=== PATIENT | female | born 1970 | race Caucasian/White ===

== ENCOUNTER 2020-03-12 08:04 | Emergency (ER) | payer BC ==
[2020-03-12 08:25] VITALS: BP 128/76; PULSE 67
--- NOTE | 2020-03-12 09:54 | EDM.PDOC ---
ED HPI GENERAL MEDICAL PROBLEM - General Chief Complaint: General Stated Complaint: BLEEDING FROM EAR / ON BLOOD THINNERS Time Seen by Provider: 03/12/20 08:40 - History of Present Illness INITIAL COMMENTS - FREE TEXT/NARRATIVE: A 49 years old female ,Known patient of factor V Leiden defi,DVT ,anxiety & depression , came this morning to the ED with c/o bleeding from left year .She reports that she noticed blood in her left ear canal & her hearing aid device shows blood clots on it. She is on warfarin 10 mg on Monday & Monday & 11 mg on rest of days of week. She reports that bleeding started 2 hours ago. Bleeding is not associated with pain ,ear discharge ,headache ,fever,or runny nose No h/o of ear trauma Onset: Today Onset Date: 03/12/20 Onset Time: 08:40 Duration: Hour(s): (2) - Related Data Allergies Allergy/AdvReac Type Severity Reaction Status Date / Time No Known Allergies Allergy Verified 03/13/16 21:50 Home Meds: Home Meds Fingolimod HCl [Gilenya] 0.5 mg PO DAILY 06/29/15 [History] Sertraline [Zoloft] 25 mg PO BEDTIME 06/29/15 [History] Warfarin Sodium [Jantoven] 10 mg PO BEDTIME 06/29/15 [History] Lisinopril 10 mg PO DAILY 02/02/18 [History] Past Medical History HEENT History: Reports: Impaired Vision Cardiovascular History: Reports: Hypertension, Other (See Below) Other Cardiovascular History: FACTOR 5 LEIDEN Genitourinary History: Reports: Renal Calculus 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 DVT Dermatologic History: Reports: Other (See Below) Other Dermatologic History: BRUISING FROM KNEE TO ANKLE, WARM TO TOUCH, EDEMETOUS - Infectious Disease History Infectious Disease History: Reports: Chicken Pox - Past Surgical History Female Surgical History: Reports: Section, Lithotripsy/ESWL Social & Family History - Family History Family Medical History: No Pertinent Family History - Tobacco Use Tobacco Use Status *Q: Never Tobacco User Second Hand Smoke Exposure: No - Caffeine Use Caffeine Use: Reports: Coffee - Recreational Drug Use Recreational Drug Use: No ED ROS GENERAL - Review of Systems Review Of Systems: See Below Constitutional: Reports: No Symptoms HEENT: Reports: Ear Discharge (Left ears shows fresh blood coming out from left ear canal ), Other Respiratory: Reports: No Symptoms Cardiovascular: Reports: No Symptoms Endocrine: Reports: No Symptoms GI/Abdominal: Reports: No Symptoms : Reports: No Symptoms Musculoskeletal: Reports: No Symptoms Skin: Reports: No Symptoms Neurological: Reports: No Symptoms Hematologic/Lymphatic: Reports: No Symptoms Immunologic: Reports: No Symptoms ED EXAM, GENERAL - Physical Exam Exam: See Below Exam Limited By: No Limitations General Appearance: Alert, No Apparent Distress Ears: Normal External Exam Ear Exam: Right Ear: TM normal (NOrmal ), Left Ear: Bleeding ([place] normal ,normal tympanic membrane ), Erythema (present on left ear auditory canal +fresh bright red blood oozing from left ear canal ) Nose: Normal Inspection Throat/Mouth: Normal Inspection Head: Atraumatic Neck: Normal Inspection Respiratory/Chest: No Respiratory Distress Cardiovascular: Normal Peripheral Pulses GI/Abdominal: Normal Bowel Sounds (Female) Exam: Normal External Exam, Normal Speculum Exam, Normal Bimanual Exam Neurological: Alert, Oriented Psychiatric: Normal Affect Course - Vital Signs Last Recorded V/S: Last Vital Signs Temp 97.1 F 03/12/20 08:17 Pulse 67 03/12/20 08:17 Resp 18 03/12/20 08:17 BP 128/76 03/12/20 08:17 Pulse Ox 100 03/12/20 08:17 - Orders/Labs/Meds Labs: Laboratory Tests 03/12/20 03/12/20 03/12/20 Range/Units 08:30 08:30 08:30 WBC 4.4 D (4.0-11.0) K/uL RBC 4.84 (3.80-5.80) M/uL Hgb 13.1 (11.5-16.5) g/dL Hct 40.3 (37.0-47.0) % MCV 83 (76-96) fL MCH 27.1 (27.0-32.0) pg MCHC 32.5 (31.0-35.0) g/dL RDW 14.9 (11.0-16.0) % Plt Count 231 D (150-500) K/uL MPV 9.4 (6.0-10.0) fL Neut % (Auto) 80.5 H (45.0-70.0) % Lymph % (Auto) 7.7 L (20.0-40.0) % [place] % (Auto) 10.5 H (3.0-10.0) % Eos % (Auto) 1.1 (1.0-5.0) % Baso % (Auto) 0.2 (0.0-0.5) % Neut # (Auto) 3.54 (2.00-7.50) K/uL Lymph # (Auto) 0.34 L (1.50-4.00) K/uL [place] # (Auto) 0.46 (0.20-0.80) K/uL Eos # (Auto) 0.05 (0.04-0.40) K/uL Baso # (Auto) 0.01 L (0.02-0.10) K/uL PT 32.5 H (9.0-11.5) sec INR 3.2 (1.0-3.5) APTT 37.2 H (24.4-33.2) SECONDS D-Dimer, Quantitative < 100 (0-400) ng/mL Sodium (136-145) mmol/L Potassium (3.5-5.1) mmol/L Chloride (98-107) mmol/L Carbon Dioxide (21.0-32.0) mmol/L Anion Gap (5.0-15.0) mmol/L BUN (8-26) mg/dL Creatinine (0.55-1.02) mg/dL Est Cr Clr Drug Dosing mL/min Estimated GFR (MDRD) (>60) MLS/MIN BUN/Creatinine Ratio (6-25) Glucose (74-100) mg/dL Calcium (8.5-10.1) mg/dL Total Bilirubin (0.0-1.0) mg/dL AST (15-37) U/L ALT (12-78) U/L Alkaline Phosphatase (46-116) U/L Total Protein (6.4-8.2) g/dL Albumin (3.4-5.0) g/dL Globulin (2.2-4.2) g/dL Albumin/Globulin Ratio (0.8-2.0) 01/28/21 Range/Units 08:30 WBC (4.0-11.0) K/uL RBC (3.80-5.80) M/uL Hgb (11.5-16.5) g/dL Hct (37.0-47.0) % MCV (76-96) fL MCH (27.0-32.0) pg MCHC (31.0-35.0) g/dL RDW (11.0-16.0) % Plt Count (150-500) K/uL MPV (6.0-10.0) fL Neut % (Auto) (45.0-70.0) % Lymph % (Auto) (20.0-40.0) % [place] % (Auto) (3.0-10.0) % Eos % (Auto) (1.0-5.0) % Baso % (Auto) (0.0-0.5) % Neut # (Auto) (2.00-7.50) K/uL Lymph # (Auto) (1.50-4.00) K/uL [place] # (Auto) (0.20-0.80) K/uL Eos # (Auto) (0.04-0.40) K/uL Baso # (Auto) (0.02-0.10) K/uL PT (9.0-11.5) sec INR (1.0-3.5) APTT (24.4-33.2) SECONDS D-Dimer, Quantitative (0-400) ng/mL Sodium 140 (136-145) mmol/L Potassium 4.0 (3.5-5.1) mmol/L Chloride 106 (98-107) mmol/L Carbon Dioxide 26.4 (21.0-32.0) mmol/L Anion Gap 11.6 (5.0-15.0) mmol/L BUN 12 (8-26) mg/dL Creatinine 1.19 H D (0.55-1.02) mg/dL Est Cr Clr Drug Dosing 65.32 mL/min Estimated GFR (MDRD) 49 L (>60) MLS/MIN BUN/Creatinine Ratio 10.1 (6-25) Glucose 117 H (74-100) mg/dL Calcium 8.0 L (8.5-10.1) mg/dL Total Bilirubin 0.3 D (0.0-1.0) mg/dL AST 22 (15-37) U/L ALT 47 (12-78) U/L Alkaline Phosphatase 65 (46-116) U/L Total Protein 7.1 (6.4-8.2) g/dL Albumin 3.7 (3.4-5.0) g/dL Globulin 3.4 (2.2-4.2) g/dL Albumin/Globulin Ratio 1.1 (0.8-2.0) - Re-Assessments/Exams Free Text/Narrative Re-Assessment/Exam: 03/12/20 10:09 Labs ordered - I reviewed labs myself - PT was 32.2 INR =3.2 APPT was 37.2 -discussed with her to speak with her PCP if she can hold warfarin for a day or two -The patient agreed left ear canal was cleaned with dry & wet swab . Left ear canal was packed with a gauze roll with triple antibiotic . She was advised to see the PCP tomorrow for removal of gauze roll. The patient was advised to come back if bleeding worse . Departure - Departure Time of Disposition: 09:35 Disposition: Home, Self-Care 01 Condition: Good Clinical Impression: Bleeding from left ear - Discharge Information *PRESCRIPTION DRUG MONITORING PROGRAM REVIEWED*: No *COPY OF PRESCRIPTION DRUG MONITORING REPORT IN PATIENT SIOMARA: No Instructions: Ear Drainage, [id number] Referrals: PCP,None [Primary Care Provider] - Forms: ED Department Discharge Additional Instructions: Discharge home. Avoid using ear plugs for a few days. Return to the clinic tomorrow to have packing removed from the right earElizabeth at 9am. If the packing falls out during the night and there is not bleeding, do not put packing back in. If the right ear canal is still bleeding, return to the hospital. Sepsis Event Note (ED) - Evaluation Sepsis Screening Result: No Definite Risk - Focused Exam Vital Signs: Vital Signs Temp Pulse Resp BP Pulse Ox 03/12/20 08:17 97.1 F 67 18 128/76 100 03/12/20 08:15 97.1 F 72 18 128/76 100 - Problem List & Annotations (1) Ear bleeding SNOMED Code(s): 356222759, 745551503 Code(s): H92.20 - OTORRHAGIA, UNSPECIFIED EAR Status: Acute Priority: Medium Qualifiers: Laterality: left Qualified Code(s): H92.22 - Otorrhagia, left ear (2) detention current use of anticoagulant SNOMED Code(s): 253098488 Code(s): Z79.01 - PRISON (CURRENT) USE OF ANTICOAGULANTS Status: Acute (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
== END 2020-03-12 09:25 | disposition home or self-care (01) ==
LOC: LB.ED 08:04
DX: H92.22 Otorrhagia, left ear (principal); I10 Essential (primary) hypertension; G35 Multiple sclerosis; Z79.01 Long term (current) use of anticoagulants; Z79.899 Other long term (current) drug therapy
CPT/HCPCS: 36415; 80053; 85025; 85379; 85610; 85730; 99283

== ENCOUNTER 2021-02-23 09:23 | Emergency (ER) | payer BC ==
[2021-02-23 11:03] VITALS: BP 152/82; PULSE 78
== END 2021-02-23 12:08 | disposition home or self-care (01) ==
LOC: LB.ED 09:23
DX: S86.012A Strain of left Achilles tendon, initial encounter (principal); I10 Essential (primary) hypertension; Z79.899 Other long term (current) drug therapy; Z79.01 Long term (current) use of anticoagulants; Z86.718 Personal history of other venous thrombosis and embolism; W18.30XA Fall on same level, unspecified, initial encounter; W86.8XXA Exposure to other electric current, initial encounter; Y93.01 Activity, walking, marching and hiking; Y92.000 Kitchen of unspecified non-institutional (private) residence as the place of occurrence of the external cause
CPT/HCPCS: 73610-LT; 99283

== ENCOUNTER 2023-05-28 10:01 | Emergency (ER) | payer BC ==
[2023-05-28 10:15] VITALS: PULSE 83
[2023-05-28 11:33] VITALS: BP 145/89
== END 2023-05-28 11:11 | disposition home or self-care (01) ==
LOC: LB.ED 10:01
DX: S00.83XA Contusion of other part of head, initial encounter (principal); I10 Essential (primary) hypertension; E66.9 Obesity, unspecified; Z68.41 Body mass index [BMI] 40.0-44.9, adult; Z79.899 Other long term (current) drug therapy; Z79.01 Long term (current) use of anticoagulants; W01.198A Fall on same level from slipping, tripping and stumbling with subsequent striking against other object, initial encounter
CPT/HCPCS: 70450; 70486; 99283

== ENCOUNTER 2024-02-23 21:08 | Inpatient (IN) | payer BC ==
[2024-02-23] MEDS: Ondansetron 4 MG/2 ML SDV IVPUSH PRN (22:34)
[2024-02-23 22:38] LABS: BASOPHILS ABSOLUTE AUTO 0.03 K/uL (0.02-0.10); BASOPHILS PERCENT AUTO 0.3 % (0.0-0.5); EOSINOPHILS ABSOLUTE AUTO 0.01 K/uL (0.04-0.40); EOSINOPHILS PERCENT AUTO 0.1 % (1.0-5.0); HEMOGLOBIN 13.1 g/dL (11.5-16.5); LYMPHOCYTES ABSOLUTE AUTO 1.01 K/uL (1.50-4.00); LYMPHOCYTES PERCENT AUTO 9.4 % (20.0-40.0); MEAN CORPUSCULAR HEMOGLOBIN 28.3 pg (27.0-32.0); MEAN CORPUSCULAR HGB CONC 33.6 g/dL (31.0-35.0); MEAN CORPUSCULAR VOLUME 84 fL (76-96); MEAN PLATELET VOLUME 9.5 fL (6.0-10.0); MONOCYTES ABSOLUTE AUTO 0.76 K/uL (0.20-0.80); MONOCYTES PERCENT AUTO 7.1 % (3.0-10.0); NEUTROPHILS ABSOLUTE AUTO 8.93 K/uL (2.00-7.50); NEUTROPHILS PERCENT AUTO 83.1 % (45.0-70.0); PLATELET COUNT,PLT 254 K/uL (150-500); RED BLOOD CELL COUNT 4.63 M/uL (3.80-5.80); WHITE BLOOD CELL COUNT,WBC 10.7 K/uL (4.0-11.0)
[2024-02-23] MEDS: HYDROmorphone 1 MG/ML Syringe IVPUSH PRN (22:40)
[2024-02-23] MEDS: HYDROmorphone 2 MG/ML Syringe ONE (22:55)
[2024-02-23 22:56] LABS: A/G RATIO 1.2 (0.8-2.0); ANION GAP 15.2 mmol/L (5.0-15.0); BILIRUBIN TOTAL 0.7 mg/dL (0.0-1.0); BUN/CREATININE RATIO 10.5 (6-25); CALCIUM 8.8 mg/dL (8.5-10.1); CARBON DIOXIDE,CO2 27.5 mmol/L (21.0-32.0); CREATININE 1.33 mg/dL (0.55-1.02); EST CRCL DRUG DOSING (CG) 54.11 mL/min; POTASSIUM,K 4.7 mmol/L (3.5-5.1); PROTEIN TOTAL,TP 7.4 g/dL (6.4-8.2)
[2024-02-23 22:59] LABS: INR 3.2 (1.0-3.5)
[2024-02-24] MEDS: Lisinopril 20 MG Tab PO SCH (00:51)
[2024-02-24] MEDS: Sertraline 100 MG Tab PO SCH (00:51)
[2024-02-24] MEDS: FLU (Fluarix Triv) TS24-25(6MOS UP)/PF 45 MCG/0.5 ML Syringe IM ONE (00:54)
[2024-02-24] MEDS: HYDROmorphone 1 MG/ML Syringe IVPUSH SCH (01:36)
[2024-02-24 07:10] LABS: BASOPHILS ABSOLUTE AUTO 0.02 K/uL (0.02-0.10); BASOPHILS PERCENT AUTO 0.2 % (0.0-0.5); EOSINOPHILS ABSOLUTE AUTO 0.01 K/uL (0.04-0.40); EOSINOPHILS PERCENT AUTO 0.1 % (1.0-5.0); HEMATOCRIT 35.4 % (37.0-47.0); HEMOGLOBIN 11.9 g/dL (11.5-16.5); LYMPHOCYTES ABSOLUTE AUTO 1.31 K/uL (1.50-4.00); LYMPHOCYTES PERCENT AUTO 12.1 % (20.0-40.0); MEAN CORPUSCULAR HEMOGLOBIN 28.5 pg (27.0-32.0); MEAN CORPUSCULAR HGB CONC 33.6 g/dL (31.0-35.0); MEAN CORPUSCULAR VOLUME 85 fL (76-96); MEAN PLATELET VOLUME 9.5 fL (6.0-10.0); MONOCYTES PERCENT AUTO 9.2 % (3.0-10.0); NEUTROPHILS ABSOLUTE AUTO 8.49 K/uL (2.00-7.50); NEUTROPHILS PERCENT AUTO 78.4 % (45.0-70.0); PLATELET COUNT,PLT 267 K/uL (150-500); RED BLOOD CELL COUNT 4.17 M/uL (3.80-5.80); RED CELL DISTRIBUTION WIDTH 13.8 % (11.0-16.0); WHITE BLOOD CELL COUNT,WBC 10.8 K/uL (4.0-11.0)
[2024-02-24 07:49] LABS: PROTHROMBIN TIME 29.6 sec (9.0-11.5)
[2024-02-24] MEDS: HYDROmorphone 2 MG/ML Syringe ONE (09:57)
[2024-02-24] MEDS ORDERED: HYDROmorphone 2 MG/ML Syringe IVPUSH PRN (10:15)
[2024-02-24] MEDS: DIMETHYL FUMARATE 240 MG PO SCH (11:43)
[2024-02-24] MEDS: Acetaminophen/HYDROcodone 325-5 MG Tab PO PRN (16:56)
[2024-02-24] MEDS ORDERED: Sertraline 100 MG Tab PO SCH (20:00)
[2024-02-24] MEDS: Acetaminophen 325 MG Tab PO PRN (20:01)
[2024-02-25] MEDS ORDERED: Ergocalciferol (Vitamin D2) 1.25 MG Cap PO SCH (08:00)
[2024-02-25] MEDS: Sodium Chloride 0.9% 10 ML Syringe FLUSH PRN (08:10)
[2024-02-25 08:42] LABS: BASOPHILS ABSOLUTE AUTO 0.03 K/uL (0.02-0.10); BASOPHILS PERCENT AUTO 0.4 % (0.0-0.5); EOSINOPHILS ABSOLUTE AUTO 0.04 K/uL (0.04-0.40); EOSINOPHILS PERCENT AUTO 0.6 % (1.0-5.0); HEMATOCRIT 30.5 % (37.0-47.0); HEMOGLOBIN 10.2 g/dL (11.5-16.5); LYMPHOCYTES ABSOLUTE AUTO 1.23 K/uL (1.50-4.00); LYMPHOCYTES PERCENT AUTO 17.8 % (20.0-40.0); MEAN CORPUSCULAR HEMOGLOBIN 28.3 pg (27.0-32.0); MEAN CORPUSCULAR HGB CONC 33.4 g/dL (31.0-35.0); MEAN CORPUSCULAR VOLUME 85 fL (76-96); MEAN PLATELET VOLUME 9.7 fL (6.0-10.0); MONOCYTES ABSOLUTE AUTO 0.85 K/uL (0.20-0.80); MONOCYTES PERCENT AUTO 12.3 % (3.0-10.0); NEUTROPHILS ABSOLUTE AUTO 4.77 K/uL (2.00-7.50); NEUTROPHILS PERCENT AUTO 68.9 % (45.0-70.0); PLATELET COUNT,PLT 221 K/uL (150-500); RED BLOOD CELL COUNT 3.61 M/uL (3.80-5.80); RED CELL DISTRIBUTION WIDTH 13.6 % (11.0-16.0); WHITE BLOOD CELL COUNT,WBC 6.9 K/uL (4.0-11.0)
[2024-02-25 08:54] LABS: INR 2.2 (1.0-3.5)
[2024-02-25 09:03] LABS: ALBUMIN 3.4 g/dL (3.4-5.0); BILIRUBIN TOTAL 0.7 mg/dL (0.0-1.0); CALCIUM 8.4 mg/dL (8.5-10.1); CARBON DIOXIDE,CO2 30.6 mmol/L (21.0-32.0); CREATININE 1.08 mg/dL (0.55-1.02); EST CRCL DRUG DOSING (CG) 66.64 mL/min; POTASSIUM,K 4.4 mmol/L (3.5-5.1); PROTEIN TOTAL,TP 6.9 g/dL (6.4-8.2)
[2024-02-25 09:04] LABS: ANION GAP 11.8 mmol/L (5.0-15.0); PROTHROMBIN TIME 21.5 sec (9.0-11.5)
[2024-02-25] MEDS: Sennosides/Docusate Sodium 50-8.6 MG Tab PO SCH (13:15)
[2024-02-26 08:29] LABS: INR 1.3 (1.0-3.5)
[2024-02-26 08:33] LABS: PROTHROMBIN TIME 12.9 sec (9.0-11.5)
[2024-02-26 13:39] VITALS: BP 149/73; PULSE 91
[2024-02-26] MEDS ORDERED: Warfarin 5 MG Tab PO SCH (18:00)
== END 2024-02-26 13:07 | disposition home or self-care (01) | DRG 384 ==
LOC: LB.ED 21:08 → LB.MS 23:45
PROVIDERS: ADMIT Surgery; ATTEND Surgery
DX: S30.0XXA Contusion of lower back and pelvis, initial encounter (principal); E11.9 Type 2 diabetes mellitus without complications; D68.51 Activated protein C resistance; Z68.41 Body mass index [BMI] 40.0-44.9, adult; E66.9 Obesity, unspecified; K21.9 Gastro-esophageal reflux disease without esophagitis; D64.9 Anemia, unspecified; F32.A Depression, unspecified; F41.9 Anxiety disorder, unspecified; Z79.01 Long term (current) use of anticoagulants; Z79.4 Long term (current) use of insulin; Z86.718 Personal history of other venous thrombosis and embolism; W01.0XXA Fall on same level from slipping, tripping and stumbling without subsequent striking against object, initial encounter; Y92.89 Other specified places as the place of occurrence of the external cause
CPT/HCPCS: 36415; 72192; 80053; 85018; 85025; 85610; 85730; 90656; 97162-GP; 99222; 99231; 99232; 99238; A9270-GY; G0008; J1171; J2405; U0002